=== PATIENT | male | born 1985 | race Caucasian/White ===

== ENCOUNTER 2023-09-23 10:13 | Outpatient (CLI) | payer OTHER, SELFPAY | END 2023-09-23 10:14 | disposition home or self-care (01) | PROVIDERS: PCP Family Medicine; Visit Provider Family Medicine | DX: Z13.220 Encounter for screening for lipoid disorders (principal); Z13.228 Encounter for screening for other metabolic disorders | CPT/HCPCS: 80048; 80061 ==

== ENCOUNTER 2023-11-22 09:20 | Outpatient (CLI) | payer OTHER, SELFPAY | END 2023-11-22 09:21 | disposition home or self-care (01) | LOC: NFLDREF 11-23 08:21 | PROVIDERS: PCP Family Medicine; Referring Provider Family Medicine; Visit Provider Family Medicine | DX: R79.89 Other specified abnormal findings of blood chemistry (principal) | CPT/HCPCS: 80076; 82977 ==

== ENCOUNTER 2024-08-02 07:02 | Outpatient (CLI) | payer OTHER, SELFPAY ==
--- NOTE | 2024-08-02 07:15 | CRLHL7_ITS ---
For Patients: As a result of the Century Cures Act, medical imaging exams and procedure reports are released immediately into your electronic medical record. You may view this report before your referring provider. If you have questions, please contact your health care provider. INDICATION: Radiculopathy. COMPARISON: 07/10/2024. TECHNIQUE: Sagittal T1, T2, and STIR sequences. Axial T2/gradient sequences. FINDINGS: Normal vertebral body facet alignment. No fractures. No vertebral body loss of height. No spondylolisthesis. No ligamentous injury. No suspicious osseous lesions. Normal cord signal. No intradural mass or lesion. C1-2: No spinal canal narrowing. C2-3: No spinal canal neural foraminal narrowing. C3-4: Disk degeneration post disc bulging disc osteophyte complex. Mild narrowing of spinal canal. Mild right and moderate left neural foraminal narrowing. C4-5: Disc degeneration. Loss disc height. Mild Modic type 1 endplate changes. Posterior disc bulge or disc osteophyte complex. Mild narrowing of the spinal canal. Moderate narrowing of bilateral foramina. C5-6: Posterior disc bulge. No narrowing of spinal canal. Mild narrowing of bilateral foramina. C6-7: Disc degeneration and right paracentral disc bulge disc osteophyte complex. Mild narrowing of spinal canal. Moderate severe right neural foraminal narrowing. No narrowing of left neural foramen. Potential impingement of the right C7 nerve root. C7-T1: No spinal canal or neural foraminal narrowing. No spinal canal or neural foraminal narrowing is visualized upper thoracic spine. IMPRESSION: 1. Normal alignment. No fractures. 2. Normal cord signal. 3. Cervical spondylosis 4. At C3-4, mild right and moderate left neural foraminal narrowing. 5. At C4-5, moderate narrowing of the bilateral neural foramina 6. At C6-7, moderate to severe right neural foraminal narrowing. Potential impingement of the right C7 nerve root Dictated by Tanvir Mccray MD @ 08/02/2024 1:59:21 PM (Electronically Signed)
== END 2024-08-02 07:03 | disposition home or self-care (01) ==
LOC: MRI 07:04
PROVIDERS: PCP Family Medicine; Visit Provider Family Medicine
DX: M54.12 Radiculopathy, cervical region (principal); M47.892 Other spondylosis, cervical region; M50.21 Other cervical disc displacement, high cervical region; M50.222 Other cervical disc displacement at C5-C6 level; M50.223 Other cervical disc displacement at C6-C7 level
CPT/HCPCS: 72141